=== PATIENT | male | born 1955 | race Caucasian/White ===

== ENCOUNTER 2022-11-19 11:34 | Emergency (ER) | payer MEDICARE, OTHER ==
[~2022-11-19] VITALS: Ht 167.6 cm; Wt 84.0 kg
[2022-11-19] MEDS ORDERED: KETOROLAC 60MG/2ML VIAL IM ONE (12:45)
[2022-11-19] MEDS ORDERED: CYCL10TA21 MT (15:18)
[2022-11-19] MEDS ORDERED: TOPUD MT (15:18)
[2022-11-19 15:46] VITALS: BP 158/100
== END 2022-11-19 15:59 | disposition home or self-care (01) ==
LOC: ER 11:34
DX: M25.552 Pain in left hip (principal); M54.50 Low back pain, unspecified; G89.29 Other chronic pain; I11.0 Hypertensive heart disease with heart failure; I50.9 Heart failure, unspecified; Z88.8 Allergy status to other drugs, medicaments and biological substances
CPT/HCPCS: 72100; 73502; 96372; 99284; J1885; Z7610